=== PATIENT | male | born 1995 | race Two or more races ===

== ENCOUNTER 2019-11-05 15:02 | Emergency (ER) | payer OTHER ==
[~2019-11-05] VITALS: Ht 170.2 cm; Wt 81.6 kg
[2019-11-05 15:07] VITALS: BP 128/83
--- NOTE | 2019-11-05 15:12 | NUR ---
PT AMBULATED TO BED 2, STEADY GAIT.
--- NOTE | 2019-11-05 15:14 | NUR ---
VISUAL ACUITY WITHOU CORECTION OD-20-1 OS-20 OU-20
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
[2019-11-05] MEDS ORDERED: FLUORESCEIN OPTH STRIP 1 MG OP ONE (15:20)
[2019-11-05] MEDS ORDERED: KETOROLAC 30 MG/ML VIAL IM ONE (15:20)
[2019-11-05 16:00] VITALS: BP 118/78
--- NOTE | 2019-11-05 16:00 | NUR ---
Patient discharged with v/s stable. Written and verbal after care instructions given and explained. Patient alert, oriented and verbalized understanding of instructions. Ambulatory with steady gait. All questions addressed prior to discharge. ID band removed. Patient advised to follow up with PMD. Rx of Ibuprofen and Erythromycin given. Patient educated on indication of medication including possible reaction and side effects. Opportunity to ask questions provided and answered.
== END 2019-11-05 16:00 | disposition home or self-care (01) ==
LOC: MED 15:02
DX: S05.01XA Injury of conjunctiva and corneal abrasion without foreign body, right eye, initial encounter (principal); Y04.8XXA Assault by other bodily force, initial encounter; Y93.89 Activity, other specified; Y92.89 Other specified places as the place of occurrence of the external cause; Y99.8 Other external cause status
CPT/HCPCS: 96372; 99283; J1885